=== PATIENT | male | born 1955 | race Caucasian/White ===

== ENCOUNTER 2019-08-05 | Emergency (ER) | payer SELFPAY ==
[2019-08-05 01:28] LABS: #Lymphocytes 0.6 thou/uL (1.20-3.40); #Monocytes 0.5 thou/uL (0.11-0.59); #Neutrophils 11.2 thou/uL (1.40-6.50); %Eosinophils 0.4 % (0.0-10.0); %Lymphocytes 4.8 % (21.0-51.0); %Monocytes 4.3 % (0.0-10.0); %Neutrophils 90.5 % (42.0-75.0); Hemoglobin 15.1 g/dL (14.0-18.0); Mean Corpuscular HGB CONC 32.4 g/dL (32.0-36.0); Mean Corpuscular Hemoglobin 29.5 pg (27.0-31.0); Mean Corpuscular Volume 91.1 fL (78.0-98.0); Mean Platelet Volume 6.6 fL (7.4-10.4); Platelet Count 171 thou/uL (130-400); RBC Distribution Width 14.2 % (11.5-14.5); Red Blood Cell (RBC) Count 5.11 mill/uL (4.70-6.10); White Blood Cell (WBC) Count 12.4 thou/uL (4.8-10.8)
[2019-08-05 01:46] LABS: Acetaminophen Less than 6.0 mcg/mL (10.0-30.0); Alcohol Less than 10 mg/dL (Less than 10); Salicylate Less than 8.0 mg/dL (15.0-30.0)
[2019-08-05 01:48] LABS: ALT (SGPT) 53 U/L (8-55); AST (SGOT) 19 U/L (5-34); Albumin 3.2 g/dL (3.4-4.8); Alcohol Less than 10 mg/dL (Less than 10); Alkaline Phosphatase 77 U/L (40-110); Anion Gap 12 mmol/L (10-20); BUN (Urea Nitrogen) 20 mg/dL (8.4-25.7); Bilirubin, Total 0.3 mg/dL (0.2-1.2); CK (CPK) 64 U/L (30-200); Calc. Creatinine Clearance 0 mL/min (70-130); Calcium 9.1 mg/dL (7.8-10.44); Carbon Dioxide 29 mmol/L (23-31); Chloride 103 mmol/L (98-107); Estimated GFR-MDRD Greater than 90; Glucose 104 mg/dL (80-115); Protein, Total 6.2 g/dL (5.8-8.1); Sodium 140 mmol/L (136-145)
[2019-08-05 02:58] LABS: Bilirubin Negative (Negative); Blood, Urine Negative (Negative); Clarity Clear (Clear); Glucose, Urine (Dipstick) Normal (Negative); Leukocyte Negative Leu/uL (Negative); Nitrite Negative (Negative); Protein, Urine (Dipstick) 10 mg/dL (Neg-Trace)
[2019-08-05 03:10] LABS: Benzodiazepine Screen Detected (NotDetected); Medtox Reader # READER 4; Methadone Detected (NotDetected)
[2019-08-05 03:11] LABS: Amphetamine Not Detected (NotDetected); Barbiturates Screen Not Detected (NotDetected); Cocaine Metabolite Screen Not Detected (NotDetected); Medtox Control Line Valid? VALID (VALID); Methamphetamine Not Detected (NotDetected); Opiate Screen Detected (NotDetected); Oxycodone Screen Not Detected (NotDetected); Phencyclidine (PCP) Not Detected (NotDetected); THC/Cannabinoid Screen Not Detected (NotDetected); Tricyclic Screen Not Detected (NotDetected)
--- NOTE | 2019-08-05 09:05 | CT ---
PRELIMINARY REPORT/[facility]/EMERGENCY AFTER HOURS PROCEDURE: EXAM: CT Head Without Intravenous Contrast. 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 COMPARISON: None provided. FINDINGS: BRAIN: No acute intraparenchymal hemorrhage. No mass lesion. No CT evidence for acute territorial inf arct. No midline shift or extra-axial collection. VENTRICLES: No hydrocephalus. ORBITS: The orbits are unremarkable. SINUSES AND MASTOIDS: The paranasal sinuses and mastoid air cells are clear. SOFT TISSUES: No significant facial or scalp soft tissue swelling evident. No radiopaque foreign body is seen. BONES: No acute skull fracture. IMPRESSION: No acute intracranial abnormality. ELECTRONICALLY SIGNED BY: Desi Haji MD Aug 05, 2019 2:44:09 AM CDT This report is intended for review by the ordering physician only, in accordance of law. If you recei ve this report in error, please call [facility] at [phone]. FINAL REPORT BRAIN CT WITHOUT IV CONTRAST: EMERGENT AFTER HOURS EXAM TIME: 2:03 AM. DATE: 08/05/2019. FINDINGS/IMPRESSION: Mild sinus mucosal disease. No mass or bleed or other significant acute intracranial process. POS: RRE
[2019-08-05] MEDS ORDERED: Lorazepam 1 MG TAB PO PRN (09:07)
[2019-08-05] MEDS ORDERED: Morphine IR Tab 15 MG TAB PO PRN (09:07)
[2019-08-05] MEDS ORDERED: Haloperidol Lactate 5 MG/ML VIAL ONE (09:59)
[2019-08-05] MEDS ORDERED: diphenhydrAMINE 25 MG CAP ONE (10:02)
[2019-08-05] MEDS ORDERED: Ziprasidone 20 MG CAP ONE (10:03)
[2019-08-05] MEDS ORDERED: Ketamine 50 MG/ML (10ML VIAL) ONE (10:05)
[2019-08-05] MEDS ORDERED: METHadone HCl 10 MG TAB PO SCH ×2 (15:00→21:00)
[2019-08-05] MEDS ORDERED: Senokot S 8.6-50 MG TAB PO SCH (21:00)
[2019-08-05] MEDS ORDERED: Dexamethasone 4 MG TAB PO SCH (21:00)
[2019-08-06] MEDS ORDERED: Dexamethasone 4 MG TAB PO SCH (09:00)
== END 2019-08-05 10:32 ==
LOC: ERS
DX: R44.3 Hallucinations, unspecified (principal); R46.89 Other symptoms and signs involving appearance and behavior; F41.9 Anxiety disorder, unspecified; F17.210 Nicotine dependence, cigarettes, uncomplicated; Z79.899 Other long term (current) drug therapy
CPT/HCPCS: 36415; 70450; 80053; 80306; 80307; 81003; 82550; 84443; 85025; J1630; Q0163